=== PATIENT | female | born 1960 | race Caucasian/White ===

== ENCOUNTER 2020-01-24 15:35 | Emergency (ER) | payer BC ==
[~2020-01-24] VITALS: Ht 172.7 cm; Wt 56.6 kg
[~2020-01-24 15:35] MED LIST: AMOX250C PO; PANT40TA77 PO
--- NOTE | 2020-01-24 16:16 | PHYS DOC ---
Past Medical History Past Medical History: COPD Past Surgical History: , Other Additional Past Surgical Histo: GASTRIC SURGERY Smoking Status: Current Every Day Smoker Alcohol Use: Occasionally Drug Use: Marijuana General Adult EDM: Chief Complaint: HYPERTENSION HPI: HPI: Patient is a 59 year old female who presented to ER today for evaluation of elevated blood pressure. Patient had no history of hypertension patient said for the last 4 days she has been checking her blood pressure because she feels anxious, her blood pressure has been running about 150/80. Patient called her doctor who will see her tomorrow morning. Patient continued to check her blood pressure at home and it continues to be in around 150/80. Therefore she came in for evaluation. Patient denies any headache, no nausea vomiting, no chest pain. Patient denies any heart palpitation. Patient denies any trouble breathing, no cough, no fever. Patient has history of COPD, she is on a lot of supplements and herbal medications. Review of Systems: Review of Systems: Constitutional: Denies fever or chills. [] Eyes: Denies change in visual acuity. [] HENT: Denies nasal congestion or sore throat. [] Respiratory: Denies cough or shortness of breath. [] Cardiovascular: Denies chest pain or edema. [] GI: Denies abdominal pain, nausea, vomiting, bloody stools or diarrhea. [] : Denies dysuria. [] Musculoskeletal: Denies back pain or joint pain. [] Integument: Denies rash. [] Neurologic: Denies headache, focal weakness or sensory changes. [] Endocrine: Denies polyuria or polydipsia. [] Lymphatic: Denies swollen glands. [] Psychiatric: Denies depression or anxiety. [] Heart Score: Risk Factors: Risk Factors: DM, Current or recent (<one month) smoker, HTN, HLP, family history of CAD, obesity. Risk Scores: Score 0 - 3: 2.5% MACE over next 6 weeks - Discharge Home Score 4 - 6: 20.3% MACE over next 6 weeks - Admit for Clinical Observation Score 7 - 10: 72.7% MACE over next 6 weeks - Early Invasive Strategies Allergies: Allergies: Allergies Coded Allergies Type Severity Reaction Last Updated Verified No Known Drug Allergies 09/15/16 No Physical Exam: PE: Constitutional: Well developed, well nourished, no acute distress, non-toxic appearance. [] HENT: Normocephalic, atraumatic, bilateral external ears normal, oropharynx moist, no oral exudates, nose normal. [] Eyes: PERRLA, EOMI, conjunctiva normal, no discharge. [] Neck: Normal range of motion, no tenderness, supple, no stridor. [] Cardiovascular:Heart rate regular rhythm, no murmur [] Lungs & Thorax: Bilateral breath sounds clear to auscultation [] Abdomen: Bowel sounds normal, soft, no tenderness, no masses, no pulsatile masses. [] Skin: Warm, dry, no erythema, no rash. [] Back: No tenderness, no CVA tenderness. [] Extremities: No tenderness, no cyanosis, no clubbing, ROM intact, no edema. [] Neurologic: Alert and oriented X 3, normal motor function, normal sensory function, no focal deficits noted. [] Psychologic: Affect normal, judgement normal, mood normal. [] Current Patient Data: Vital Signs: Vital Signs Date Time Temp Pulse Resp B/P (MAP) Pulse Ox O2 Delivery O2 Flow Rate FiO2 6//20 15:41 98.1 86 14 161/89 (113) 98 Room Air 98.1 EKG: EKG: EKG was done at 1625, heart rate of 61 bpm, sinus rhythm, no ST segment elevation. [] Radiology/Procedures: Radiology/Procedures: [] Course & Med Decision Making: Course & Med Decision Making Pertinent Labs and Imaging studies reviewed. (See chart for details) Patient blood pressure improved to 120/50 without any treatment in the ER. Patient was found to be low on her magnesium level was 1.7. Patient was given 1 g of magnesium IV. Patient will be discharged home, she will need to follow-up with her family doctor tomorrow to reevaluate her blood pressure issue, she definitely does not need to be put on antihypertensive medication at this time. Samson Disclaimer: Samson Disclaimer: This electronic medical record was generated, in whole or in part, using a voice recognition dictation system. Departure Departure Impression: Primary Impression: Hypertension Disposition: 01 HOME, SELF-CARE Condition: IMPROVED Referrals: REUBEN FABIAN DO (PCP) please follow up with your family doctor as scheduled tomorrow. Patient Instructions: Hypertension Additional Instructions: please follow up with your doctor tomorrow as scheduled for reevaluation. Justicifation of Admission Dx: Justifications for Admission: Justification of Admission Dx: N/A ANCELMO TODD DO Jan 24, 2020 16:16
[2020-01-24 16:42] LABS: BASO # 0.1 x10^3/uL (0.0-0.2); BASO % 1 % (0-3); EOS # 0.1 x10^3/uL (0.0-0.7); EOS % 1 % (0-3); HEMATOCRIT 41.6 % (36.0-47.0); HEMOGLOBIN 14.7 g/dL (12.0-15.5); LYMPH # 1.2 x10^3/uL (1.0-4.8); LYMPH % 15 % (24-48); MEAN CORPUSCULAR HEMOGLOBIN 33 pg (25-35); MEAN CORPUSCULAR HGB CONC 35 g/dL (31-37); MEAN CORPUSCULAR VOLUME 95 fL (79-100); MONO # 0.4 x10^3/uL (0.0-1.1); MONO % 5 % (0-9); NEUT # 6.5 x10^3/uL (1.8-7.7); NEUT % 79 % (31-73); PLATELET COUNT 210 x10^3/uL (140-400); RED BLOOD COUNT 4.38 x10^6/uL (3.50-5.40); RED CELL DISTRIBUTION WIDTH 13.8 % (11.5-14.5); WHITE BLOOD COUNT 8.3 x10^3/uL (4.0-11.0)
[2020-01-24 16:45] LABS: BILIRUBIN,URINE NEGATIVE (NEG); CLARITY,URINE CLEAR; COLOR,URINE YELLOW; NITRITE,URINE NEGATIVE (NEG); PROTEIN,URINE 30 mg/dL (NEG-TRACE); UROBILINOGEN,URINE 0.2 mg/dL (0.2 mg/dL)
[2020-01-24 16:50] LABS: BACTERIA,URINE 0 /HPF (0-FEW); RBC,URINE OCC /HPF (0-2); SQUAMOUS EPITHELIAL CELL,UR OCC /LPF; WBC,URINE OCC /HPF (0-4)
[2020-01-24 16:52] LABS: BARBITURATES NEG (NEG); BENZODIAZEPINES NEG (NEG); CANNABINOIDS NEG (NEG); COCAINE NEG (NEG); METHADONE NEG (NEG); OPIATES NEG (NEG); PHENCYCLIDINE NEG (NEG)
[2020-01-24 16:53] LABS: AMPHETAMINE/METHAMPHETAMINE NEG (NEG)
[2020-01-24 17:25] LABS: CALCIUM 8.9 mg/dL (8.5-10.1); CREATININE 0.5 mg/dL (0.6-1.0); GFR 126.3; POTASSIUM 4.5 mmol/L (3.5-5.1)
[2020-01-24 17:31] LABS: ALBUMIN/GLOBULIN RATIO 1.3 (1.0-1.7); MAGNESIUM 1.7 mg/dL (1.8-2.4); TOTAL BILIRUBIN 0.4 mg/dL (0.2-1.0); TOTAL PROTEIN 7.1 g/dL (6.4-8.2)
[2020-01-24] MEDS ORDERED: MAGNESIUM SULFATE 1GM 100 ML IV ONE (18:00)
[2020-01-24 18:30] VITALS: BP 122/70
--- NOTE | 2020-01-25 08:44 | EKG ---
[facility] [address] [place] [address] Test Date: 2020-01-24 Test Time: 16:25:38 Pat Name: JACKELYN SCHULER Department: Room: Gender: F [employer]visor: : [id number] Requested By: ANCELMO TODD Order Number: [id number] Reading MD: Joselo Burroughs MD Measurements Intervals [place] Rate: 61 P: 79 NC: 122 QRS: 85 QRSD: 84 T: 55 QT: 406 QTc: 410 Interpretive Statements SINUS RHYTHM Electronically Signed On 01-28-2020 11:52:34 CDT by Joselo Burroughs MD
== END 2020-01-24 18:58 | disposition home or self-care (01) ==
LOC: ER 15:35
DX: I10 Essential (primary) hypertension (principal); J44.9 Chronic obstructive pulmonary disease, unspecified; F17.200 Nicotine dependence, unspecified, uncomplicated; F12.90 Cannabis use, unspecified, uncomplicated; Z98.890 Other specified postprocedural states
CPT/HCPCS: 36415; 80053; 80307; 81001; 83735; 84484; 85025; 93005; 96365; 99285; J3475